=== PATIENT | male | born 1985 | race Caucasian/White ===

== ENCOUNTER 2016-06-12 22:24 | Emergency (ER) | payer OTHER ==
[2016-06-12 22:31] VITALS: BP 127/62; PULSE 63; RESP 16; TEMP 97.7; O2SAT 97
--- NOTE | 2016-06-12 22:40 | EDPHY ---
H & P Stated Complaint: R hand 4th digit injury Source: Patient - Personal History Current Tetanus/Diphtheria Vaccine: Yes Current Tetanus Diphtheria and Acellular Pertussis (TDAP): Yes Tetanus Vaccine Date: 2014 - Medical/Surgical History Hx Asthma: No Hx Chronic Respiratory Disease: No Hx Diabetes: No Hx Cardiac Disease: No Hx Renal Disease: No Hx Cirrhosis: No Hx Alcoholism: No Hx HIV/AIDS: No Hx Splenectomy or Spleen Trauma: No Other PMH: NONE - Social History Smoking Status: Never smoked HPI/ROS: HPI CHIEF COMPLAINT: 4th digit crush injury HISTORY OF PRESENT ILLNESS: This patient very pleasant 30-year-old male, presents emergency room with a injury to his right hand 4th digit. He tells me his 4th digit got caught in a chair hand. This happened 30 minutes ago. He has currently 2/10 pain. Denies any other areas of injury. He does tell me his tetanus shot is up-to-date. Past Medical History: Denies significant medical history Past Surgical History: Denies significant surgical history Social History: Denies use of drugs alcohol tobacco products Family History: Noncontributory ROS REVIEW OF SYSTEMS: A comprehensive 10 point review of systems is otherwise negative aside from elements mentioned in the history of present illness. Exam Constitutional triage nursing summary reviewed, vital signs reviewed, awake/ alert. Eyes normal conjunctivae and sclera, EOMI, PERRLA. HENT normal inspection, atraumatic, moist mucus membranes, no epistaxis, neck supple/ no meningismus, no raccoon eyes. Respiratory clear to auscultation bilaterally, normal breath sounds, no respiratory distress, no wheezing. Cardiovascular rate normal, regular rhythm, no murmur, no edema, distal pulses normal. Gastrointestinal soft, non-tender, no rebound, no guarding, normal bowel sounds, no distension, no pulsatile mass. Genitourinary no CVA tenderness. Musculoskeletal right hand: 4th digit: there is a crush injury visible to the right 4th digit distal aspect. There is blood present. There is did not appear to be an open fracture is neurovascular intact has full range of motion but pain with range of motion, no midline vertebral tenderness, full range of motion, no calf swelling, no tenderness of extremities, no meningismus, good pulses, neurovascularly intact. Skin pink, warm, & dry, no rash, skin atraumatic. Neurologic awake, alert and oriented x 3, AAOx3, moves all 4 extremities equally, motor intact, sensory intact, CN II-XII intact, normal cerebellar, normal vision, normal speech. Psychiatric normal mood/affect. Heme/Lymph/Immune no lymphadenopathy. Differential Diagnosis: Includes but is not limited to in a particular order, finger contusion, crush injury to finger, hand contusion, hand fracture, soft tissue injury, nail bed injury Medical Decision Making: this patient had an x-ray of the 4th digit. His wound will be cleaned. Will need to evaluate to see if there is anything that needs to be sutured. Most likely patient be splinted and referred to Hand surgery. Re-evaluation: ED x-ray right hand: 4th digit, no evidence of fracture specifically no evidence of tuft fracture. Procedure note: Digital block with 1% lidocaine of 4th digit. This patient proximally had 7 cc of 1% lidocaine without epinephrine used for digital block of the right 4th digit right hand. He tolerated this procedure well. (Jonathan Santillan) Constitutional: Initial Vital Signs Temperature (C) 36.5 C 06/12/16 22:28 Heart Rate 63 06/12/16 22:28 Respiratory Rate 16 06/12/16 22:28 Blood Pressure 127/62 H 06/12/16 22:28 O2 Sat (%) 97 06/12/16 22:28 O2 Delivery Mode Room Air Allergies/Adverse Reactions: No Known Allergies Allergy (Unverified 06/12/16 22:28) Medical Decision Making Procedures: After verbal consent was obtained and risks and benefits explained, the finger was anesthetized using a digital block for a total of 4 ml of 0.5% Marcaine. Finger tip then irrigated per protocol by signal operator technical. Under sterile procedure, the wound was explored to its base with a gloved finger and no foreign body was identified. No deep structure identified. Wound was then draped and sterile procedure followed while nail was replaced. Bacitracin placed. Finger splinted by signal operator technical thereafter. (Dolly Justin) Departure - Departure Disposition: Home, Routine, Self-Care Clinical Impression: Finger injury Condition: Good Instructions: Hematoma (ED), Subungual Hematoma (ED), Nail Avulsion (ED) Additional Instructions: 1. Please stay in her splint for protection. 2. please follow up with Hand surgery been given this information. 3. Return to the emergency room if develops worsening symptoms questions or concerns. 4.You may lose your nail. Referrals: Ingrid Flynn MD [Medical Doctor] - As per Instructions Prescriptions: Ibuprofen [Motrin (*)] 800 mg PO Q6-8PRN #7 tab
--- NOTE | 2016-06-12 23:08 | DX ---
Right fourth finger series 3 views 2210 hours. History: Crush injury. Findings: Osseous structures are intact without evidence of fracture. Joint spaces are normal. There is some soft tissue swelling over the distal phalanx. Impression: 1. No acute osseous abnormality is seen right fourth digit.
== END 2016-06-13 00:44 | disposition home or self-care (01) ==
PROC: 3E0T3CZ (ICD-10-PCS; principal; 2016-06-12)
DX: S69.91XA Unspecified injury of right wrist, hand and finger(s), initial encounter (principal); W23.1XXA Caught, crushed, jammed, or pinched between stationary objects, initial encounter
CPT/HCPCS: L3925

== ENCOUNTER → 2018-02-15 | Outpatient (CLI) | payer OTHER | LOC: BMCIMAGING 07:08 | PROVIDERS: ATTEND Family Medicine | DX: I86.1 Scrotal varices (principal) ==